=== PATIENT | female | born 1965 | race African-American/Black ===

== ENCOUNTER 2025-01-17 09:34 | Outpatient (AMB) | payer OTHER, SELFPAY ==
--- OUTSIDE RECORDS SUMMARY | 2024-03-07 07:30 | XMS_ITS | Continuity of Care Document ---
Author Organization [facility] Address [address] [place] [address] Dr [address] [place] [phone] Phone Care Team Providers Care Performing Arts Road Manager Name Role Phone Mauricio CHRISTIANSON, JUSTEN, Joshua FIERRO Unavailable U navailable Procedures Procedure Date PT Did Not Receive Services PT Did Not Receive Services Advance Directives Directive Yes / No Effective Date File Name No Information Encounters Encounter Description Practice Location Reason(s) For Visit Diagnoses Date Provider Providers Copied on Encounter [facility], [address] [place] [address] Dr Lennon [address] Khanh Nguyễn MD, [id number], tel:[phone] [facility] No Information 4 Mauricio CHRISTIANSON RVT, RPVI Robert. [address] [place] [address], [place], [place], [id number] , [place]. tel:[phone] [place] [facility], [address] [place] [address] Dr Lennon [address]Khanh MD, [id number], tel:[phone] [facility] No Information 4 Mauricio CHRISTIANSON RVT, RPVI Robert. [address] [place] [address], [id number] , [place]. tel:[phone] Family History Family Member Type Diagnosis Age At Onset No Information Payers Payer name Insurance type Covered alliance party ID Authornikunja tidanae(s) [facility] [id number] 0 Social History Type Description Quantity Date [...]
--- NOTE | 2025-01-17 09:37 | A.OFFVIS_ITS ---
Intake Visit Reasons: CTS MCI NEUROPATHY Allergies No Known Allergies Allergy (Unverified 03/28/20 18:31) HPI Comments Details: This is a 59 yrs old woman with memory issues and some word finding difficulties starting early 2024. She gets? a lot of anxiety. She also has numbness and tingling in hands. She initially had these 4 years ago and was found to have CTS which got better with wrist splints. The Sx have now come back. She stopped working as a [employer] 1 year ago. Stays home and does not go out. Has no social life . Has a few friends that she sees occasionally.? Her neice lives with her? and has a dog. Graduated from a technical HS in [place] in 1981. Occasionally both feet also go numb and has paresthesia of the right pereira and leg area. 12/27/24 MRI brain : Tiny white matter hyperintensities, age-related cerebral volume loss. 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 Normal motor and sensory nerve conduction velocities in the lower extremities. Normal EMG in the right C5-T1, and right L4-S1 innervated muscles EEG rescheduled. Hands continue to tingle, R>L. Will start using wrist splints at night. [facility] Medical History (Updated 01/17/25 @ 09:53 by Donaldo Kapadia MD) MCI (mild cognitive impairment) Hypertension Neuropathy Carpal tunnel syndrome Social History (Updated 01/16/25 @ 18:45 by Ira Webber MA) Alcohol intake: never Patient Tobacco Use Status: Never used Tobacco Review of Systems Const Details: Sleep:? Difficulty getting to sleepdenies.? Difficulty maintaining sleepdenies?.? Urge to move legsdenies.? Teeth grindingdenies.? Shouting or Kicking during sleep denies.? Abnormal behavior during sleepdenies.? Excessive sleepdenies.? Snoring denies.? Daytime sleepinessdenies. ???General/Constitutional:? Change in appetitedenies.? Chillsdenies.? Fatiguedenies.? Feverdenies.? Weight gaindenies.? Weight lossdenies. ???Ophthalmologic:? Blurred visiontemporary.? Diminished visual acuitydenies. ???ENT:? Stuffinessdenies.? Decreased hearingdenies.? Dry mouthdenies.? Ear paindenies.? Nosebleeddenies.? Ringing in the earsdenies.? Sinus paindenies.? Sore throat denies.? Swollen glandsdenies. ???Endocrine:? Cold intolerancedenies.? Excessive thirstdenies.? Frequent urinationdenies.? Heat intolerancedenies. ???Respiratory:? Shortness of breathdenies.? Chest paindenies.? Coughdenies. ???Breast:? Breast lumpdenies.? Nipple dischargedenies. ???Cardiovascular:? Chest pain at restdenies.? Chest pain with exertiondenies.? Claudicationdenies .? Dizzinessdenies.? Fluid accumulation in the legsdenies.? Irregular heartbeat denies.? Palpitationsdenies. ???Gastrointestinal:? Abdominal paindenies.? Constipationadmits.? Diarrheaadmits.? Difficulty swallowingdenies.? Heartburndenies.? Nauseadenies.? Rectal bleedingdenies. ???Hematology:? Easy bruisingdenies.? Prolonged bleedingdenies. ???Genitourinary:? Frequent urinationadmits.? Urgencydenies.? Incontinencedenies.? Erectile Dysfunctiondenies. ???Musculoskeletal:? Neck paindenies.? Back painadmits.? Muscle achesdenies.? Painful jointsdenies.? Sciaticadenies.? Weaknessdenies. ???Podiatric:? Difficulty walkingdenies.? Foot numbnessdenies. ???Neurologic:? Difficulty swallowingdenies.? Balance difficultydenies.? Coordinationnormal.? Difficulty speakingadmits.? Dizzinessadmits.? Faintingdenies.? Gait abnormality denies.? Headachedenies.? Loss of strengthdenies.? Loss of use of extremity denies.? Low back paindenies.? Memory lossadmits.? Seizuresdenies.? Ticsdenies.? Tingling/Numbnesshands and feet.? Transient loss of visiondenies.? Tremordenies. ???Psychiatric:? Anxietyadmits.? Auditory/visual hallucinationsdenies.? Delusionsdenies.? Depressed moodadmits.? Stressorsadmits.? Substance abusedenies.? Suicidal thoughtsdenies. Physical Exam Neuro Other: Neurological: Abnormal neurological findings:??MMS 28/30.?Mental Status:??alert and oriented X 3,?Normal attention, orientation, memory and affect.?Cranial Nerves:??Pupils are equal, round and reactive to light. Fundoscopy shows normal disc bilaterally. External occular muscles are intact. Visual gilman are full, no ptosis. Face is symmetrical, no facial weakness or droop. Facial sensations are normal. Tongue protrudes in midline. Palate elevates symmetrically. Shoulder shrugging is normal..?Motor Examination:??Normal muscle tone, bulk and strength,?No atrophy or fasciculations,?No drift of the extended upper extremities,?Deep tendon reflexes are 2+?,?Plantars are flexor?.?Straight Leg Raising:??90 degrees.?Sensory Exam:??Normal light touch, temperature, pinprick, vibration and joint-position sensations?,?Rhomberg sign is absent.?Coordination:??no ataxia,?no titubation,?bvdcun-jr-mull, pdlt-kvkz-oanz test and rapid alternating movements were normal.?Gait Exam:??Within normal limits.?Cerebellar Signs:??Ogqorl-op-zukq and nqgk-jg-imlu is normal,?no dysdi adochokinesia?.?Extrapyramidal System:??No tremor, rigidity with normal facial expressions,?No bradykinesia, no bradyphrenia. Normal arm swing and posture. No propulsion or retropulsion.?Speech:??Normal,?no dysphasia or dysarthria..? General Examination: GENERAL APPEARANCE:??normal,?in no acute distress.?HEAD:??normocephalic,?atraumatic.?EYES:??sclera non-icteric,? conjunctiva clear.?EARS:??auditory canal clear,?tympanic membrane intact, clear.?NOSE:??no lesions.?ORAL CAVITY:??gums normal,?mucosa moist,?no lesions.?THROAT:??clear.?NECK/THYROID:??no cervical lymphadenopathy,?thyroid normal,?neck supple, full range of motion,?no carotid bruit.?SKIN:??no rashes,?no significant birthmarks.?HEART:??S1, S2 normal,?no murmurs.?LUNGS:??clear anteriorly and posteriorly.?CHEST:??no gross rib deformity,?clear to auscultation.?BACK:??normal exam of spine.?EXTREMITIES:??no edema.?PERIPHERAL PULSES:??normal.?PSYCH:??alert, oriented,?cognitive function intact,?cooperative with exam.? Mini Mental Status Exam: Level of Consciousness:??Alert.?Orientation:??Knows correct year, not month, date, day and season,?Knows correct city, county and state. Knows correct location and floor.?Registration:??Able to register 3 objects.?Attention:??Serial 7's to 93.?Recall:??Able to recall 3 out of 3 objects.?Language:??Normal spontaneous speech, fluency, repetition,naming, comprehension, reading and writing.?Total Score:??28/30.? Assessment & Plan Assessment & Plan (1) Carpal tunnel syndrome: Code(s): G56.00 - Carpal tunnel syndrome, unspecified upper limb Category: Medical (2) MCI (mild cognitive impairment): Code(s): G31.84 - Mild cognitive impairment of uncertain or unknown etiology Category: Medical Plan Reschedule EEG, MRA brain to r/o aneurysm suspected on MRI. Wear wrist splints at night for mild CTS Orders: Orders EEG electroencephalogram Today G31.84 - Mild cognitive impairment of uncertain or unknown etiology MR angio head wo con Today I67.1 - Cerebral aneurysm, nonruptured Coding Level of Care Code Est Pt Level 3 (91028) Diagnoses Carpal tunnel syndrome G56.00 MCI (mild cognitive impairment) G31.84
--- OUTSIDE RECORDS SUMMARY | 2025-01-17 10:04 | XMS_ITS | Clinical Summary ---
Author Organization [facility] Address [address] [place] [address] Phone Care Team Providers Care Veneer Sample Maker Name Role Phone Aquilino Del Rio MD Primary Care Provider Allergies No known active allergies Medications hydroCHLOROthia zide (MICROZIDE) 12.5 mg capsule TAKE 1 CAPSULE BY MOUTH EVERY DAY IN THE MORNING 90 capsule 1 08/28/2024 Active lisinopriL (PRINIVIL,ZESTR IL) 10 mg tablet TAKE 1 TABLET BY MOUTH EVERY DAY 90 tablet 1 08/28/2024 Active naproxen (NAPROSYN) 500 mg tablet TAKE 1 TABLET BY MOUTH TWICE A DAY WITH MEALS 60 tablet 2 11/22/2024 Active labetaloL (NORMODYNE) 300 mg tablet TAKE 1 TABLET BY MOUTH TWICE A DAY 180 tablet 3 12/19/2024 Active Active Problems Problem Noted Date Diagnosed Date Ganglion of right wrist 05/29/2024 ASCUS with positive high risk HPV cervical 01/26 Overview (06/15/2024): Pap 01/2024 - ASCUS, HPV positive, 16/18/45 neg Colpo negative Repeat pap 2024 Lymphadenopathy 05/08/2021 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 9) with comorbidity (CMS/HCC V24, CMS/HCC V28) 04/28/2019 Bilateral carpal tunnel syndrome 12/23/2017 Depression 01/21/2017 Solitary thyroid nodule 01/21/2017 Left ventricular hypertrophy 09/04/2015 Internal hemorrhoids 05/01/2014 Hyperlipidemia 10/17/2013 Left atrial enlargement 09/30/2013 Positive reaction to tuberculin skin test 2011 Hypertension 08/28/2008 Encounters Date Type Department Care Team Description 11/02/2024 Telephone Internal Medicine - [address] [place] [address] Aquilino Del Rio MD from Last 3 Months Immunizations Name Administration Dates Next Due Influenza Quadravalent, MDCK , 0.5ml, with preservative (Flucelvax) 6mo and older 05/12/2018 Influenza, Unspecified 03/08/2024,04/04/2023, Moderna SARS-CoV-2 COVID-19, mRNA, LNP-S, preservative free 04/18/2023 Pneumococcal conjugate 13 va lent (Prevnar 13, PCV13) 2mo and older 06/24/2017 Pneumococcal polysaccharide 23 valent (Pneumovax 23) 2yo and older 05/29/2019 Tdap Tetanus diptheria acell ular pertussis (Boostrix; Adacel) 7yo and older 01/21/2017 Medical History Medical History Date Comments CTS (carpal tunnel syndrome) 12/23/2017 DX: CTS (carpal tunnel syndrome) Depression 01/21/2017 DX:Depression Hyperlipidemia 10/17/2013 DX:Hyperlipidemi a Hypertension 08/28/2008 DX:Hypertension Internal hemorrhoids 05/01/2014 DX:Internal hemorrhoids Left atrial enlargement 09/30/2013 DX:Left atrial enlargement Left ventricular hypertrophy 09/04/2015 DX: Left ventricular hypertrophy Positive reaction to tubercu silvia skin test 03/30/2012 DX:Positive reaction to tube rculin skin test Solitary thyroid nodule 01/21/2017 DX:Solit lewis thyroid nodule Family History Medical History Relation Name Comments Lung cancer Father 57 sei zures epilepsy Dementia Mother Hypertension Mother living Other: sebastián cerda Sister 1 d 2009 Lung cancer Sister 2 ? stroke Breast cancer Neg Hx Relation Name Status Comments Father Mother Sister 1 Sister 2 Social History Tobacco Use Types Packs/Day Years Used Date Smoking Tobacco: Some Days Smokeless Tobacco: Never Alcohol Use Standard Drinks/Week Comments Yes 0 (1 standard drink = 0.6 oz pur e alcohol) Comments Unknown Sex and Gender Information Value Date Recorded Sex Assigned at Not on file Legal Sex Female 8:48 AM EST Gender Identity Not on file Sexual Orientation Not on file Obstetrics History Last Filed Vital Signs Vital Sign Reading Time Taken Comments Blood Pressure 118/60 09/18/2024 3:26 PM EDT Pulse 72 09/18/2024 3:26 PM EDT Temperature 36 C (96.8 F) 09/18/2024 3:26 PM EDT Respiratory Rate - - Oxygen Saturation 98% 09/18/2024 3:26 PM EDT Inhaled Oxygen Concentration - - Weight 71.1 kg (156 lb 12.8 oz) 09/18/2024 3:26 PM EDT Height 157.5 cm (5' 2 ) 03/22/2024 2:11 PM EDT Body Mass Index 28.68 03/22/2024 2:11 PM EDT Plan of Treatment Upcoming Encounters Date Type Department Care Team ([facility] st Contact Info) Description 03/07/2025 4:00 PM EDT Appointment Radiology Department [address] [phone] 03/22/2025 9:30 AM EDT Office Visit Internal Medicine - [place] [address] [address] Aquilino Del Rio MD 175 [facility] [address] [place] [address] Health Maintenance Due Date Last Done Comments Zoster Vaccines (1 of 2) 2013 Colorectal Cancer Screening: Stool Based Tests (FOBT/FIT) 06/20/2022 Depression Screening 06/20/2022 HIV Screening 06/20/2022 Social Influencers of Health Screening 06/20/2022 COVID-19 Vaccine ( season) 2024 04/18/2023, 10/28/2021 Hypertension/CHF/CAD Annual BMP Blood Test 03/07/2025 03/07/2024, 03/07/2024 Influenza Vaccine (#1) 2025 , 04/04/2023, 07/10/2022, Additional history exists Breast Cancer Screening 09/08/2025 09/08/19 24, 10/07/2022, 03/31/2022, Additional history exists Cervical Cancer Screening: HPV 01/16/2029 01/17/2024 Cholesterol Screening (Lipid Panel) 03/07/2029 03/07/2024, 03/07/2024 DTaP,Tdap,and Td Vaccines (3 - Td or Tdap) 01/07/2035 01/07/2025, 01/21/2017 Hepatitis C Screening Completed 05/01/2019 Colorectal Cancer Screening: Colonoscopy Discontinued 08/12/2022 Pneumococcal Vaccine: 50+ Years Completed 09/26/2024, 05/29/2019, 06/24/2017 Pneumococcal Vaccine: Pediatrics (0 to 5 Years) and At-Risk Patients (6 to 49 Years) Completed 09/26/2024, 05/29/2019, 06/24/2017 RSV Immunization Adult Patients Completed 09/26/2024 HIB Vaccines Aged Out No longer eligi ble based on patient's age to complete this topic HPV Vaccines Aged Out No longer eligi ble based on patient's age to complete this topic Hepatitis A Vaccines Aged Out No long er eligible based on patient's age to complete this topic Hepatitis B Vaccines Aged Out No long er eligible based on patient's age to complete this topic IPV Vaccines Aged Out No longer eligi ble based on patient's age to complete this topic MMR Vaccines Aged Out No longer eligi ble based on patient's age to complete this topic Meningococcal ACWY Vaccine Aged Out N o longer eligible based on patient's age to complete this topic Meningococcal B Vaccine Aged Out No l onger eligible based on patient's age to complete this topic RSV Immunization Patients Under 20 months Aged Out No longer eligible based on patient's age to complete this topic Varicella Vaccines Aged Out No longer eligible based on patient's age to complete this topic Procedures Procedure Name Priority Date/Time Associated Diagnosis Comments ANNUAL BMP BLOOD TEST Routine 03/07/2024 LIPID PANEL Routine 03/07/2024 HPV Routine 01/17/2024 DX MAMMO INCL CAD UNI Routine 09/08/2023 3:48 PM EST Encounter for screening mammogram for malignant neoplasm of breast COLONOSCOPY Routine 08/12/2022 HEPATITIS C SCREENING Routine 05/01/2019 from Last 3 Months or Most Recently Relevant to Health Maintenance Results * Annual BMP Blood Test (03/07/2024) Pathologist [facility] Annual BMP Blood Test abstracted [facility] Provider [facility] Final Result * (ABNORMAL) Lipid panel (03/07/2024) [facility] LDL/HDL Ratio 3 0 - 4 Triglycerides 94 0 - 150 mg/dL Cholesterol 190 0 - 200 mg/dL HDL 60 >=40 mg/dL LDL Cholesterol 112(A) 0 - 100 mg/dL Blood Venous blood specimen / Unknown [facility] Provider LAB BLOOD ORDERABLES Karli l Result * Cervical Cancer Screening: HPV (01/17/2024) [facility] Cervical Cancer Screening: HPV positive, abstracted Comment:HIGH RISK HPV: POSIT SUHAIL , HPV 16: NEGATIVE HPV 18/45: NEGATIVE [facility] Provider [facility] Final Result * DX MAMMO INCL CAD UNI (09/08/2023 3:48 PM EST) Anatomical Region Laterality Modality Mammography 10/07/2022 9:30 AM EDT Narrative 09/08/2023 4:19 PM EST This is a summary report. The complete report is available in the patient's medical record. If you cannot access the medical record, please contact the sending organization for a detailed fax or copy. Right breast mammogram. History follow-up on microcalcifications in the inner inferior right breast. Magnification views of the right breast were obtained. Compared with priors, the earliest magnification views from 09/25/2021. Microcalcifications of concern in the right in the inferior breast are very subtle and barely visible on today's examination. Considering stability for almost 2 years they are considered to be benign. No new suspicious abnormalities identified. Conclusions: Stable for almost 2 years microcalcifications in the right breast. Follow-up mammogram at the time of your next annual screening. BI-RADS 2, benign findings. Procedure Note Kellen Sweeney MD - 02/28/2024 This is a summary report. The complete report is available in thepatient's medical record. If you cannot access the medical record, pleasecontact the sending organization for a detailed fax or copy. Right breast mammogram. History follow-up on microcalcifications in the inner inferior rightbreast. Magnification views of the right breast were obtained. Compared withpriors, the earliest magnification views from 09/25/2021. Microcalcifications of concern in the right in the inferior breast arevery subtle and barely visible on today's examination. Consideringstability for almost 2 years they are considered to be benign. No newsuspicious abnormalities identified. Conclusions: Stable for almost 2 years microcalcifications in the rightbreast. Follow-up mammogram at the time of your next annual screening. BI-RADS 2, benign findings. Maria Alejandra Renteria DO IMG BI PROCEDURES Final Result * Colonoscopy (08/12/2022) Colonoscopy no interpretation , abstracted Anatomical Region Laterality Modality Other Historical Provider HEALTH MAINTENANCE Final Result * Hepatitis C Screening (05/01/2019) Hepatitis C Screening abstracted Historical Provider HEALTH MAINTENANCE Final Result from Last 3 Months or Most Recently Relevant to Health Maintenance Insurance [facility] [facility] Care Teams Veneer Sample Maker Relationship Specialty Start Date End Date Aquilino Del Rio MD [address] [id number] PCP - General Internal Medicine 04/28/19
== END 2025-01-17 09:57 | disposition home or self-care (01) ==
LOC: HO.HSM 09:35
PROVIDERS: PCP Internal Medicine; Referring Provider Internal Medicine; Visit Provider Psychiatry & Neurology Neurology
DX: G56.00 Carpal tunnel syndrome, unspecified upper limb (principal); G31.84 Mild cognitive impairment of uncertain or unknown etiology
CPT/HCPCS: 99213

== ENCOUNTER → 2025-01-17 09:34 | Outpatient (BNVA) | payer OTHER, SELFPAY | PROVIDERS: PCP Internal Medicine; Referring Provider Internal Medicine; Visit Provider Psychiatry & Neurology Neurology | DX: I67.1 Cerebral aneurysm, nonruptured (principal); G56.00 Carpal tunnel syndrome, unspecified upper limb | CPT/HCPCS: 99212 ==

== ENCOUNTER → 2025-01-25 09:24 | Outpatient (BNV) | payer OTHER, SELFPAY | PROVIDERS: PCP Internal Medicine; Visit Provider Psychiatry & Neurology Neurology | DX: G31.84 Mild cognitive impairment of uncertain or unknown etiology (principal) | CPT/HCPCS: 95816 ==

== ENCOUNTER 2025-01-25 10:01 | Outpatient (REF) | payer OTHER, SELFPAY ==
--- OUTSIDE RECORDS SUMMARY | 2024-03-07 07:30 | XMS_ITS | Continuity of Care Document ---
Author Organization [facility] Address [address] [place] [address] Dr [address] [place] [phone] Phone Care Team Providers Care Criminal Justice Professor Name Role Phone Mauricio CHRISTIANSON, JUSTEN, Joshua FIERRO Unavailable U navailable Procedures Procedure Date PT Did Not Receive Services PT Did Not Receive Services Advance Directives Directive Yes / No Effective Date File Name No Information Encounters Encounter Description Practice Location Reason(s) For Visit Diagnoses Date Provider Providers Copied on Encounter [facility], [address] [place] [address] Dr Lennon [address] Khanh Nguyễn MD, [id number], tel:[phone] [facility] No Information 4 Mauricio CHRISTIANSON RVT, RPVI Robert. [address] [place] [address], [place], [place], [id number] , [place]. tel:[phone] [place] [facility], [address] [place] [address] Dr Lennon [address]Khanh [place], [id number], tel:[phone] [facility] No Information 4 Mauricio CHRISTIANSON RVT, RPVI Robert. [address] [place] [address], [id number] , [place]. tel:[phone] Family History Family Member Type Diagnosis Age At Onset No Information Payers Payer name Insurance type Covered alliance party ID Authornikunja tidanae(s) [facility] [id number] Social History Type Description Quantity Date [...]
--- NOTE | 2025-01-25 09:24 | EEG_ITS ---
Description: This is a routine waking EEG using the 10-20 electrode placement system. The waking background activity consists of low-voltage fast frequency seen diffusely intermixed with low-voltage posterior 10 hertz alpha frequency.? Photic stimulation is without activation.? Hyperventilation produces no change in the background activity. No focal, lateralizing or paroxysmal discharges are seen. Impression: This waking EEG is within normal limits MTDD
--- OUTSIDE RECORDS SUMMARY | 2025-01-25 10:28 | XMS_ITS | Clinical Summary ---
Author Organization 175 [facility] Address 175 [place] [address] Phone Care Team Providers Care Route Sales Driver Name Role Phone Aquilino Del Rio MD Primary Care Provider [phone] Allergies No known active allergies Medications hydroCHLOROthia [...] Team Description 11/02/2024 Telephone Internal Medicine - [address] [place] [address] Aquilino Del Rio MD from [...] Upcoming Encounters Date Type Department Care Team ([facility] st Contact Info) Description 03/07/2025 4:00 PM EDT Appointment Radiology Department [address] [phone] 03/22/2025 9:30 AM EDT Office Visit Internal Medicine - [place] [address] [phone] Aquilino Del Rio MD 175 [facility] [address] [place] [address] Health Maintenance Due Date Last Done Comments [...] Vaccine: 50+ Years Completed 09/26/2024, 05/29/2019, 06/24/2017 RSV Immunization Adult [...] Results * Annual BMP Blood Test (03/07/2024) HM Annual BMP Blood Test abstracted [facility] Provider [facility] Final Result * (ABNORMAL) Lipid panel (03/07/2024) [facility] LDL/HDL Ratio 3 0 - 4 Triglycerides 94 0 - 150 mg/dL Cholesterol 190 0 - 200 mg/dL HDL 60 >=40 mg/dL LDL Cholesterol 112(A) 0 - 100 mg/dL Blood Venous blood specimen / Unknown Result [facility] Provider LAB BLOOD ORDERABLES Karli l Result * Cervical Cancer Screening: HPV (01/17/2024) [facility] Cervical Cancer Screening: HPV positive, abstracted Comment:HIGH RISK HPV: POSIT SUHAIL , HPV 16: NEGATIVE HPV 18/45: NEGATIVE [facility] Provider [facility] Final Result * DX MAMMO INCL CAD [...] BI PROCEDURES Final Result * Colonoscopy (08/12/2022) Pathologist [facility] Colonoscopy no interpretation , abstracted Anatomical Region Laterality Modality Other Historical Provider HEALTH MAINTENANCE Final Result * Hepatitis C Screening (05/01/2019) Pathologist [facility] Hepatitis C Screening abstracted Historical Provider HEALTH MAINTENANCE Final Result from Last 3 Months or Most Recently Relevant to Health Maintenance Insurance [facility] PL[facility] Care Teams Route Sales Driver Relationship Specialty Start Date End Date Aquilino Del Rio MD [address] [address] PCP - General Internal Medicine 04/28/19
== END 2025-01-25 10:02 | disposition home or self-care (01) ==
LOC: HO.NEURO 10:01
PROVIDERS: PCP Internal Medicine; Visit Provider Psychiatry & Neurology Neurology
DX: G31.84 Mild cognitive impairment of uncertain or unknown etiology (principal)
CPT/HCPCS: 95816

== ENCOUNTER 2025-04-03 11:10 | Outpatient (AMB) | payer OTHER, SELFPAY ==
--- NOTE | 2025-04-03 11:17 | A.OFFVIS_ITS ---
Intake Visit Reasons: 2M MCI Allergies No Known Allergies Allergy (Unverified 03/28/20 18:31) HPI Comments Details: This is a 59 yrs old woman with memory issues and some word finding difficulties starting early 2024. She gets? a lot of anxiety. She also has numbness and tingling in hands. She initially had these 4 years ago and was found to have CTS which got better with wrist splints. The Sx have now come back. 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 Stays home and does not go out. Has no social life . Has a few friends that she sees occasionally.? Her neice lives with her? and has a dog. Graduated from a technical HS in [place] in 1981. Occasionally both feet also go numb and has paresthesia of the right pereira and leg area. Her mother had dementia either in her 60s or 70s and several of her maternal uncles also had dementia 12/27/24 MRI brain : Tiny white matter hyperintensities, age-related cerebral volume loss. 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 Normal motor and sensory nerve conduction velocities in the lower extremities. Normal EMG in the right C5-T1, and right L4-S1 innervated muscles EEG is within normal limits. Hands continue to tingle, R>L. Will start using wrist splints at night. [facility] Medical History (Updated 04/03/25 @ 11:20 by Donaldo Kapadia MD) MCI (mild cognitive impairment) Hypertension Neuropathy Carpal tunnel syndrome Social History (Updated 01/16/25 @ 18:45 by Ira Webber MA) Alcohol intake: never Patient Tobacco Use Status: Never used Tobacco Review of Systems Const Details: Sleep:? Difficulty getting to sleepdenies.? Difficulty maintaining sleepdenies?.? Urge to move legsdenies.? Teeth grindingdenies.? Shouting or Kicking during sleep denies.? Abnormal behavior during sleepdenies.? Excessive sleepdenies.? Snoring denies.? Daytime sleepinessdenies. ???General/Constitutional:? Change in appetitedenies.? Chillsdenies.? Fatiguedenies.? Feverdenies.? Weight gaindenies.? Weight lossdenies. ???Ophthalmologic:? Blurred visiontemporary.? Diminished visual acuitydenies. ???ENT:? Stuffinessdenies.? Decreased hearingdenies.? Dry mouthdenies.? Ear paindenies.? Nosebleeddenies.? Ringing in the earsdenies.? Sinus paindenies.? Sore throat denies.? Swollen glandsdenies. ???Endocrine:? Cold intolerancedenies.? Excessive thirstdenies.? Frequent urinationdenies.? Heat intolerancedenies. ???Respiratory:? Shortness of breathdenies.? Chest paindenies.? Coughdenies. ???Breast:? Breast lumpdenies.? Nipple dischargedenies. ???Cardiovascular:? Chest pain at restdenies.? Chest pain with exertiondenies.? Claudicationdenies .? Dizzinessdenies.? Fluid accumulation in the legsdenies.? Irregular heartbeat denies.? Palpitationsdenies. ???Gastrointestinal:? Abdominal paindenies.? Constipationadmits.? Diarrheaadmits.? Difficulty swallowingdenies.? Heartburndenies.? Nauseadenies.? Rectal bleedingdenies. ???Hematology:? Easy bruisingdenies.? Prolonged bleedingdenies. ???Genitourinary:? Frequent urinationadmits.? Urgencydenies.? Incontinencedenies.? Erectile Dysfunctiondenies. ???Musculoskeletal:? Neck paindenies.? Back painadmits.? Muscle achesdenies.? Painful jointsdenies.? Sciaticadenies.? Weaknessdenies. ???Podiatric:? Difficulty walkingdenies.? Foot numbnessdenies. ???Neurologic:? Difficulty swallowingdenies.? Balance difficultydenies.? Coordinationnormal.? Difficulty speakingadmits.? Dizzinessadmits.? Faintingdenies.? Gait abnormality denies.? Headachedenies.? Loss of strengthdenies.? Loss of use of extremity denies.? Low back paindenies.? Memory lossadmits.? Seizuresdenies.? Ticsdenies.? Tingling/Numbnesshands and feet.? Transient loss of visiondenies.? Tremordenies. ???Psychiatric:? Anxietyadmits.? Auditory/visual hallucinationsdenies.? Delusionsdenies.? Depressed moodadmits.? Stressorsadmits.? Substance abusedenies.? Suicidal thoughtsdenies. Physical Exam Neuro Other: Neurological: Abnormal neurological findings:??MMS 25/30.?Mental Status:??alert and oriented X 3,?Normal attention, orientation, and affect.?Cranial Nerves:??Pupils are equal, round and reactive to light. Fundoscopy shows normal disc bilaterally. External occular muscles are intact. Visual gilman are full, no ptosis. Face is symmetrical, no facial weakness or droop. Facial sensations are normal. Tongue protrudes in midline. Palate elevates symmetrically. Shoulder shrugging is normal..?Motor Examination:??Normal muscle tone, bulk and strength,?No atrophy or fasciculations,?No drift of the extended upper extremities,?Deep tendon reflexes are 2+?,?Plantars are flexor?.?Straight Leg Raising:??90 degrees.?Sensory Exam:??Normal light touch, temperature, pinprick, vibration and joint-position sensations?,?Rhomberg sign is absent.?Coordination:??no ataxia,?no titubation,?znfcmv-at-vovc, jsiu-untn-qmfb test and rapid alternating movements were normal.?Gait Exam:??Within normal limits.?Cerebellar Signs:??Ybnjxe-ux-hbpb and mbel-fb-yggm is normal,?no dysdiadochokinesia?.?Extrapyramidal System:??No tremor, rigidity with normal facial expressions,?No bradykinesia, no bradyphrenia. Normal arm swing and posture. No propulsion or retropulsion.?Speech:??Normal,?no dysphasia or dysarthria..? General Examination: GENERAL APPEARANCE:??normal,?in no acute distress.?HEAD:??normocephalic,?atraumatic.?EYES:??sclera non- icteric,?conjunctiva clear.?EARS:??auditory canal clear,?tympanic membrane intact, clear.?NOSE:??no lesions.?ORAL CAVITY:??gums normal,?mucosa moist,?no lesions.?THROAT:??clear.?NECK/THYROID:??no cervical lymphadenopathy,?thyroid normal,?neck supple, full range of motion,?no carotid bruit.?SKIN:??no rashes,?no significant birthmarks.?HEART:??S1, S2 normal,?no murmurs.?LUNGS:??clear anteriorly and posteriorly.?CHEST:??no gross rib deformity,?clear to auscultation.?BACK:??normal exam of spine.?EXTREMITIES:??no edema.?PERIPHERAL PULSES:??normal.?PSYCH:??alert, oriented,?cognitive function intact,?cooperative with exam.? Mini Mental Status Exam: Level of Consciousness:??Alert.?Orientation:??Knows correct year, month, date, day and season,?Knows correct city, county and state. Knows correct location and floor.?Registration:??Able to register 3 objects.?Attention:??Serial 7's to 93.?Recall:??Able to recall 0 out of 3 objects.?Language:??Normal spontaneous speech, fluency, repetition,naming, comprehension, reading and writing.?Total Score:??25/30.? Assessment & Plan Assessment & Plan (1) MCI (mild cognitive impairment): Comment: January 2025 EEG: This waking EEG is within normal limits Code(s): G31.84 - Mild cognitive impairment of uncertain or unknown etiology Category: Medical Plan: With a family history of dementia, we will proceed with spinal fluid analysis to see if this could be early Alzheimer's disease. (2) Carpal tunnel syndrome: Code(s): G56.00 - Carpal tunnel syndrome, unspecified upper limb Category: Medical Plan Reschedule MRA brain to r/o aneurysm suspected on MRI. Wear wrist splints at night for mild CTS Orders: Orders ABeta 42/40 p-tau 217 Eval Today G31.84 - Mild cognitive impairment of uncertain or unknown etiology CSF Cell Count w Diff Today G31.84 - Mild cognitive impairment of uncertain or unknown etiology CSF Glucose Today G31.84 - Mild cognitive impairment of uncertain or unknown etiology CSF Total Protein Today G31.84 - Mild cognitive impairment of uncertain or unknown etiology TSH reflex Free T4 Today G31.84 - Mild cognitive impairment of uncertain or unknown etiology Vitamin B12 and Folate Today G31.84 - Mild cognitive impairment of uncertain or unknown etiology Phospho-Tau Tot-Tau AB42 CSF Today G31.84 - Mild cognitive impairment of uncertain or unknown etiology Coding Level of Care Code Est Pt Level 4 (34175) Diagnoses MCI (mild cognitive impairment) G31.84 Carpal tunnel syndrome G56.00
--- OUTSIDE RECORDS SUMMARY | 2025-04-03 14:02 | XMS_ITS ---
Author Name [facility] Organization Unknown Care Team Organization Name Specialty Phone Email Start Date End Da te [facility] AISHWARYA CRAMER Primary Care 05/19/2022 02/28/20 24
--- OUTSIDE RECORDS SUMMARY | 2025-04-03 14:02 | XMS_ITS | Clinical Summary ---
Author Organization 175 [facility] Address [address] [place] [address] Phone Care Team Providers Care Aging Department Supervisor Name Role Phone Aquilino Del Rio MD Primary Care Provider [phone] Allergies No known active allergies Medications hydroCHLOROthia [...] Encounters Date Type Department Care Team Description 03/07/2025 10:24 AM EDT - 03/07/2025 11:59 PM EDT Hospital Encounter Radiology Department - [address] [phone] Encounter for screening mammogram for breast cancer Discharge Disposition: Home or Self Care 01/26/2025 Telephone Internal Medicine - [address] [place] [address] Aquilino Del Rio MD from [...] = 0.6 oz pur e alcohol) Comments No Sex and Gender Information Value Date Recorded Sex Assigned at Not on file Legal Sex Female 8:48 AM EST Gender Identity Not on file Sexual Orientation Not on file Obstetrics History Para Term AB IAB SAB Ectopic Multiple Livin g Live Births 0 0 0 0 Last Filed Vital Signs Vital Sign Reading [...] Upcoming Encounters Date Type Department Care Team (Late st Contact Info) Description 04/26/2025 8:30 AM EDT Appointment Radiology Department [address] [phone] Health Maintenance Due Date Last Done Comments Zoster Vaccines (1 of 2) 2013 Colorectal Cancer Screening: Stool Based Tests (FOBT/FIT) 06/20/2022 HIV Screening 06/20/2022 Social Influencers of Health Screening 06/20/2022 Depression Screening 07/12/2024 Hypertension/CHF/CAD Annual BMP Blood Test 03/07/2025 03/07/2024, 03/07/2024 COVID-19 Vaccine ( season) 2025 04/18/2023, 10/28/2021 Influenza Vaccine (#1) 2025 4, 04/04/2023, 07/10/2022, Additional history exists Breast Cancer Screening 03/07/2027 03/07/20 25, 09/08/2023, 10/07/2022, Additional history exists Cervical Cancer Screening: HPV [...] Procedure Name Priority Date/Time Associated Diagnosis Comments MG MAMMO DIGITAL SCREENING W GALILEO BILAT Routine 03/07/2025 10:44 AM EDT Encounter for screening mammogram for breast cancer ANNUAL BMP BLOOD TEST Routine 03/07/2024 LIPID PANEL Routine 03/07/2024 HPV Routine 01/17/2024 COLONOSCOPY Routine 08/12/2022 HEPATITIS C SCREENING Routine 05/01/2019 from Last 3 Months or Most Recently Relevant to Health Maintenance Results * (ABNORMAL) MG Mammo Digital Screening w Galileo bilat (03/07/2025 10:44 AM EDT) Anatomical Region Laterality Modality Breast Bilateral Mammography 03/08/2025 9:30 AM EDT Impressions 03/08/2025 9:42 AM EDT Calcifications versus artifact in the axillary regions. Repeat examination after careful portion of the axillary region is recommended. If densities persist, magnification views in MLO and straight lateral projection should be obtained. We will contact the patient for the arrangements. BI-RADS CATEGORY: 0 - INCOMPLETE - NEED ADDITIONAL IMAGING EVALUATION RECOMMENDATION: Additional bilateral breast imaging recommended. Mammo Location: [facility], [address] [place] [address], [id number], . -------- FINAL REPORT -------- Dictated By: Kellen Sweeney Dictated Date: 03/08/2025 09:30 ET Assigned Physician: Kellen Sweeney Reviewed and Electronically Signed By: Kellen Sweeney Signed Date: 03/08/2025 09:42 ET Workstation ID: [id number] Transcribed By: Self Edit Transcribed Date: 03/08/2025 09:30 ET Narrative 03/08/2025 9:42 AM EDT Bilateral screening mammogram. CLINICAL: 60 years old, Female, routine annual exam. COMPARISON: Prior mammograms, latest from 10/07/2022. TECHNIQUE: Bilateral MLO and CC views were obtained digitally with 2-D C views and 3-D mammogram (digital breast tomosynthesis). Computer-aided detection was utilized in evaluation of this exam (CAD). FINDINGS: There are numerous calcifications versus artifact from the deodorant or lotion in the axillary regions bilaterally. There were present previously however appear to be more prominent. There is no evidence of suspicious mass or architectural distortion. No other worrisome calcifications are evident. BREAST DENSITY: B - There are scattered areas of fibroglandular density. Procedure Note Kellen Sweeney MD - 03/08/2025 Bilateral screening mammogram. CLINICAL: 60 years old, Female, routine annual exam. COMPARISON: Prior mammograms, latest from 10/07/2022. TECHNIQUE: Bilateral MLO and CC views were obtained digitally with 2-D Cviews and 3-D mammogram (digital breast tomosynthesis). Computer-aideddetection was utilized in evaluation of this exam (CAD). FINDINGS: There are numerous calcifications versus artifact from the deodorant orlotion in the axillary regions bilaterally. There were present previouslyhowever appear to be more prominent. There is no evidence of suspicious mass or architectural distortion. Noother worrisome calcifications are evident. BREAST DENSITY: B - There are scattered areas of fibroglandular density. IMPRESSION: Calcifications versus artifact in the axillary regions. Repeatexamination after careful portion of the axillary region is recommended.If densities persist, magnification views in MLO and straight lateralprojection should be obtained. We will contact the patient for thearrangements. BI-RADS CATEGORY: 0 - INCOMPLETE - NEED ADDITIONAL IMAGING EVALUATION RECOMMENDATION: Additional bilateral breast imaging recommended. Mammo Location: [facility], [address] [place] [address], [id number], . -------- FINAL REPORT -------- Dictated By: Kellen Sweeney Dictated Date: 03/08/2025 09:30 ET Assigned Physician: Kellen Sweeney Reviewed and Electronically Signed By: Kellen Sweeney Signed Date: 03/08/2025 09:42 ET Workstation ID: [id number] Transcribed By: Self Edit Transcribed Date: 03/08/2025 09:30 ET Aquilino Del Rio MD IM BI PROCEDURES Final Result * Annual BMP Blood Test (03/07/2024) Pathologist [facility] Annual BMP Blood Test abstracted Historical Provider HEALTH MAINTENANCE Final Result * (ABNORMAL) Lipid panel (03/07/2024) Pathologist [facility] LDL/HDL Ratio 3 0 - 4 Triglycerides 94 0 - 150 mg/dL Cholesterol 190 0 - 200 mg/dL HDL 60 >=40 mg/dL LDL Cholesterol 112(A) 0 - 100 mg/dL Blood Venous blood specimen / Unknown Historical Provider LAB BLOOD ORDERABLES Karli l Result * Cervical Cancer Screening: HPV (01/17/2024) [facility] Cervical Cancer Screening: HPV positive, abstracted Comment:HIGH RISK HPV: POSIT SUHAIL , HPV 16: NEGATIVE HPV 18/45: NEGATIVE Result [facility] Provider HEALTH MAINTENANCE Final Result * Colonoscopy (08/12/2022) [facility] Colonoscopy no interpretation , abstracted Anatomical Region Laterality Modality Other [facility] Provider HEALTH MAINTENANCE Final Result * Hepatitis C Screening (05/01/2019) [facility] Hepatitis C Screening abstracted Result [facility] Provider HEALTH MAINTENANCE Final Result from Last 3 Months or Most Recently Relevant to Health Maintenance Insurance [facility] [employer] Care Teams Aging Department Supervisor Relationship Specialty Start Date End Date Aquilino Del Rio MD [address] [address] PCP - General Internal Medicine 04/28/19
== END 2025-04-03 11:47 | disposition home or self-care (01) ==
LOC: HO.HSM 11:11
PROVIDERS: PCP Internal Medicine; Visit Provider Psychiatry & Neurology Neurology
DX: G31.84 Mild cognitive impairment of uncertain or unknown etiology (principal); G56.00 Carpal tunnel syndrome, unspecified upper limb
CPT/HCPCS: 99214

== ENCOUNTER → 2025-04-03 11:10 | Outpatient (BNVA) | payer OTHER, SELFPAY | PROVIDERS: PCP Internal Medicine; Visit Provider Psychiatry & Neurology Neurology | DX: G31.84 Mild cognitive impairment of uncertain or unknown etiology (principal); G56.00 Carpal tunnel syndrome, unspecified upper limb | CPT/HCPCS: 99212 ==

== ENCOUNTER 2025-05-23 10:48 | Outpatient (AMB) | payer OTHER, SELFPAY ==
--- OUTSIDE RECORDS SUMMARY | 2024-03-07 06:30 | XMS_ITS | Continuity of Care Document ---
Author Organization [facility] Address [address] [place] [address] Dr [address] [place] [address] Phone Care Team Providers Care Inpatient Care Manager Rn Name Role Phone Mauricio CHRISTIANSON, JUSTEN, Joshua FIERRO Unavailable U navailable Procedures Procedure Date PT Did Not Receive Services PT Did Not Receive Services Advance Directives Directive Yes / No Effective Date File Name No Information Encounters Encounter Description Practice Location Reason(s) For Visit Diagnoses Date Provider Providers Copied on Encounter [facility], [address] [place] [address] Dr Lennon [address]Suite Khanh Nguyễn MD, [id number], tel:[phone] [facility] No Information 4 Mauricio CHRISTIANSON RVT, RPVI Robert. [address] [place] [address], [place], [place], [id number] , [place]. tel:[phone] [place] [facility], [address] [place] [address] Dr Lennon [address]Khanh [place], [id number], tel:[phone] [facility] No Information 4 Mauricio CHRISTIANSON RVT, RPVI Robert. [address] [place] [address], [id number] , [place]. tel:[phone] Family History Family Member Type Diagnosis Age At Onset No Information Payers Payer name Insurance type Covered democrat ID Authornikunja tidanae(s) [facility] [id number] Social History Type Description Quantity Date Captured Comments Sex Female Smoking Status No Information Chief Complaint And Reason For Visit No Information Reason For Referral Reason For Referral No Information History Of Present Illness Encounter Date Complaint History Of Prese nt Illness No Information Functional Status Date Functional Assessmen t No Information Instructions Date Instruction Additional Infor mation No Information Assessments Type Assessment Date No Information Patient Care Teams Name Effective Dates (start - stop) Status Members No Information
--- NOTE | 2025-05-23 11:18 | A.OFFVIS_ITS ---
Intake Visit Reasons: 2m Allergies No Known Allergies Allergy (Unverified 03/28/20 18:31) HPI Comments Details: This is a 59 yrs old woman with memory issues and some word finding difficulties starting early 2024. Her memory may be a bit better. At times says things that are not exactly what she wanted to say. She gets? a lot of anxiety. She also has numbness and tingling in hands. She initially had these 4 years ago and was found to have CTS which got better with wrist splints. The Sx have now come back. 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 Stays home and does not go out. Has no social life . Has a few friends that she sees occasionally.? Her neice lives with her? and has a dog. Graduated from a technical HS in [place] in 1981. Occasionally both feet also go numb and has paresthesia of the right pereira and leg area. Her mother had dementia either in her 60s or 70s and several of her maternal uncles also had dementia 12/27/24 MRI brain : Tiny white matter hyperintensities, age-related cerebral volume loss. 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 Normal motor and sensory nerve conduction velocities in the lower extremities. Normal EMG in the right C5-T1, and right L4-S1 innervated muscles EEG is within normal limits. Hands continue to tingle, R>L. Will start using wrist splints at night. [facility] Medical History (Updated 04/03/25 @ 11:20 by Donaldo Kapadia MD) MCI (mild cognitive impairment) Hypertension Neuropathy Carpal tunnel syndrome Social History (Updated 01/16/25 @ 18:45 by Ira Webber MA) Alcohol intake: never Patient Tobacco Use Status: Never used Tobacco Review of Systems Const Details: Sleep:? Difficulty getting to sleepdenies.? Difficulty maintaining sleepdenies?.? Urge to move legsdenies.? Teeth grindingdenies.? Shouting or Kicking during sleep denies.? Abnormal behavior during sleepdenies.? Excessive sleepdenies.? Snoring denies.? Daytime sleepinessdenies. ???General/Constitutional:? Change in appetitedenies.? Chillsdenies.? Fatiguedenies.? Feverdenies.? Weight gaindenies.? Weight lossdenies. ???Ophthalmologic:? Blurred visiontemporary.? Diminished visual acuitydenies. ???ENT:? Stuffinessdenies.? Decreased hearingdenies.? Dry mouthdenies.? Ear paindenies.? Nosebleeddenies.? Ringing in the earsdenies.? Sinus paindenies.? Sore throat denies.? Swollen glandsdenies. ???Endocrine:? Cold intolerancedenies.? Excessive thirstdenies.? Frequent urinationdenies.? Heat intolerancedenies. ???Respiratory:? Shortness of breathdenies.? Chest paindenies.? Coughdenies. ???Breast:? Breast lumpdenies.? Nipple dischargedenies. ???Cardiovascular:? Chest pain at restdenies.? Chest pain with exertiondenies.? Claudicationdenies .? Dizzinessdenies.? Fluid accumulation in the legsdenies.? Irregular heartbeat denies.? Palpitationsdenies. ???Gastrointestinal:? Abdominal paindenies.? Constipationadmits.? Diarrheaadmits.? Difficulty swallowingdenies.? Heartburndenies.? Nauseadenies.? Rectal bleedingdenies. ???Hematology:? Easy bruisingdenies.? Prolonged bleedingdenies. ???Genitourinary:? Frequent urinationadmits.? Urgencydenies.? Incontinencedenies.? Erectile Dysfunctiondenies. ???Musculoskeletal:? Neck paindenies.? Back painadmits.? Muscle achesdenies.? Painful jointsdenies.? Sciaticadenies.? Weaknessdenies. ???Podiatric:? Difficulty walkingdenies.? Foot numbnessdenies. ???Neurologic:? Difficulty swallowingdenies.? Balance difficultydenies.? Coordinationnormal.? Difficulty speakingadmits.? Dizzinessadmits.? Faintingdenies.? Gait abnormality denies.? Headachedenies.? Loss of strengthdenies.? Loss of use of extremity denies.? Low back paindenies.? Memory lossadmits.? Seizuresdenies.? Ticsdenies.? Tingling/Numbnesshands and feet.? Transient loss of visiondenies.? Tremordenies. ???Psychiatric:? Anxietyadmits.? Auditory/visual hallucinationsdenies.? Delusionsdenies.? Depressed moodadmits.? Stressorsadmits.? Substance abusedenies.? Suicidal thoughtsdenies. Physical Exam Neuro Other: Neurological: Abnormal neurological findings:??MMS 25/30.?Mental Status:??alert and oriented X 3,?Normal attention, orientation, and affect.?Cranial Nerves:??Pupils are equal, round and reactive to light. Fundoscopy shows normal disc bilaterally. External occular muscles are intact. Visual gilman are full, no ptosis. Face is symmetrical, no facial weakness or droop. Facial sensations are normal. Tongue protrudes in midline. Palate elevates symmetrically. Shoulder shrugging is normal..?Motor Examination:??Normal muscle tone, bulk and strength,?No atrophy or fasciculations,?No drift of the extended upper extremities,?Deep tendon reflexes are 2+?,?Plantars are flexor?.?Straight Leg Raising:??90 degrees.?Sensory Exam:??Normal light touch, temperature, pinprick, vibration and joint-position sensations?,?Rhomberg sign is absent.?Coordination:??no ataxia,?no titubation,?leusqk-ds-pfqo, zdou-bawy-vqlt test and rapid alternating movements were normal.?Gait Exam:??Within normal limits.?Cerebellar Signs:??Xjvots-zd-cbyl and blpr-vl-jtmp is normal,?no dysdiadochokin esia?.?Extrapyramidal System:??No tremor, rigidity with normal facial expressions,?No bradykinesia, no bradyphrenia. Normal arm swing and posture. No propulsion or retropulsion.?Speech:??Normal,?no dysphasia or dysarthria..? General Examination: GENERAL APPEARANCE:??normal,?in no acute distress.?HEAD:??normocephalic,?atraumatic.?EYES:??sclera non-icteric,?conjuncti va clear.?EARS:??auditory canal clear,?tympanic membrane intact, clear.?NOSE:??no lesions.?ORAL CAVITY:??gums normal,?mucosa moist,?no lesions.?THROAT:??clear.?NECK/THYROID:??no cervical lymphadenopathy,?thyroid normal,?neck supple, full range of motion,?no carotid bruit.?SKIN:??no rashes,?no significant birthmarks.?HEART:??S1, S2 normal,?no murmurs.?LUNGS:??clear anteriorly and posteriorly.?CHEST:??no gross rib deformity,?clear to auscultation.?BACK:??normal exam of spine.?EXTREMITIES:??no edema.?PERIPHERAL PULSES:??normal.?PSYCH:??alert, oriented,?cognitive function intact,?cooperative with exam.? Mini Mental Status Exam: Level of Consciousness:??Alert.?Orientation:??Knows correct year, month, date, day and season,?Knows correct city, county and state. Knows correct location and floor.?Registration:??Able to register 3 objects.?Attention:??Serial 7's to 93.?Recall:??Able to recall 0 out of 3 objects.?Language:??Normal spontaneous speech, fluency, repetition,naming, comprehension, reading and writing.?Total Score:??25/30.? Assessment & Plan Assessment & Plan (1) MCI (mild cognitive impairment): Comment: January 2025 EEG: This waking EEG is within normal limits Code(s): G31.84 - Mild cognitive impairment of uncertain or unknown etiology Category: Medical Plan: With a family history of dementia, we will proceed with spinal fluid analysis to see if this could be early Alzheimer's disease. (2) Carpal tunnel syndrome: Code(s): G56.00 - Carpal tunnel syndrome, unspecified upper limb Category: Medical Plan Wear wrist splints at night for mild CTS. Spinal fluid analysis to see if this could be early Alzheimer's disease. Orders: Orders CSF Glucose Today G31.84 - Mild cognitive impairment of uncertain or unknown etiology CSF Cell Count w Diff Today G31.84 - Mild cognitive impairment of uncertain or unknown etiology ABeta 42/40 p-tau 217 Eval Today G31.84 - Mild cognitive impairment of uncertain or unknown etiology CSF Total Protein Today G31.84 - Mild cognitive impairment of uncertain or unknown etiology Phospho-Tau Tot-Tau AB42 CSF Today G31.84 - Mild cognitive impairment of uncertain or unknown etiology FL guided lumbar puncture LP Today F02.80 - Dementia in other diseases classified elsewhere, unspecified severity, without behavioral disturbance, psychotic disturbance, mood disturbance, and anxiety, G30.0 - Alzheimer's disease with early onset Coding Level of Care Code Est Pt Level 4 (81566) Diagnoses MCI (mild cognitive impairment) G31.84 Carpal tunnel syndrome G56.00
--- OUTSIDE RECORDS SUMMARY | 2025-05-23 13:05 | XMS_ITS | Clinical Summary ---
Author Organization [address] [facility] Address [address] [place] [address] Phone Care Team Providers Care Impregnator And Drier Helper Name Role Phone Aquilino Del Rio MD Primary Care Provider Allergies No known active allergies Medications amLODIPine (NORVASC) 10 mg tablet Take 1 tablet (10 mg total) by mouth 1 (one) time each day. 90 tablet 3 05/23/20 25 Active hydroCHLOROthi azide (MICROZIDE) 12.5 mg capsule Take 1 capsule (12.5 mg total) by mouth 1 (one) time each day in the morning. 90 capsule 1 05/23/20 25 Active labetaloL (NORMODYNE) 300 mg tablet Take 1 tablet (300 mg total) by mouth 2 (two) times a day. 180 tablet 3 05/23/20 25 Active lisinopriL (PRINIVIL,ZEST RIL) 10 mg tablet Take 1 tablet (10 mg total) by mouth 1 (one) time each day. 90 tablet 1 05/23/20 25 Active naproxen (NAPROSYN) 500 mg tablet Take 1 tablet (500 mg total) by mouth 2 (two) times a day with meals. 60 tablet 2 05/23/20 25 Active hydroCHLOROthi azide (MICROZIDE) 12.5 mg capsule TAKE 1 CAPSULE BY MOUTH EVERY DAY IN THE MORNING 90 capsule 1 08/28/19 25 025 Discontinued lisinopriL (PRINIVIL,ZEST RIL) 10 mg tablet TAKE 1 TABLET BY MOUTH EVERY DAY 90 tablet 1 08/28/19 25 025 Discontinued labetaloL (NORMODYNE) 300 mg tablet TAKE 1 TABLET BY MOUTH TWICE A DAY 180 tablet 3 12/20/19 25 025 Discontinued(Re order) amLODIPine (NORVASC) 10 mg tablet TAKE 1 TABLET BY MOUTH EVERY DAY 90 tablet 3 04/04/20 25 025 Discontinued(Re order) naproxen (NAPROSYN) 500 mg tablet TAKE 1 TABLET BY MOUTH TWICE A DAY WITH MEALS 60 tablet 2 04/04/20 25 025 Discontinued(Re order) hydroCHLOROthi azide (MICROZIDE) 12.5 mg capsule TAKE 1 CAPSULE BY MOUTH EVERY DAY IN THE MORNING 90 capsule 1 05/10/20 25 025 Discontinued(Re order) lisinopriL (PRINIVIL,ZEST RIL) 10 mg tablet TAKE 1 TABLET BY MOUTH EVERY DAY 90 tablet 1 05/10/20 25 025 Discontinued(Re order) Active Problems Problem Noted Date Diagnosed Date [...] Encounters Date Type Department Care Team Description 04/26/2025 7:58 AM EDT - 04/26/2025 11:59 PM EDT Hospital Encounter Radiology Department - [address] [address] Other screening mammogram Discharge Disposition: Home or Self Care 03/07/2025 10:24 AM EDT - 03/07/2025 11:59 PM EDT Hospital Encounter Radiology Department - [address] [address] Encounter for screening mammogram for breast cancer Discharge Disposition: Home or Self Care from Last 3 Months Immunizations Immunization Administration Dates Next Due Influenza Quadravalent, MDCK , 0.5ml, with preservative (Flucelvax) 6mo and older 05/12/2018 Influenza trivalent, recombi nant, 0.5mL, preservative free (Flublok) 9yo and older 04/10/2025 Influenza, Unspecified 03/08/2024,04/04/2023, Moderna SARS-CoV-2 COVID-19, mRNA, LNP-S, preservative free 04/18/2023 Pneumococcal conjugate 13 va lent (Prevnar 13, PCV13) 2mo and older 06/24/2017 Pneumococcal conjugate 20 va lent (Prevnar 20, PCV 20) 2mo and older 09/26/2024 Pneumococcal polysaccharide 23 valent (Pneumovax 23) 2yo and older 05/29/2019 RSV, bivalent, protein subun it RSVpreF, 0.5mL, Preservative Free (ABRYSVO) 50yo and older or 32 through 36 wks of 09/26/2024 Tdap Tetanus diptheria acell ular pertussis (Boostrix; Adacel) 7yo and older 01/07/2025,01/21/2017 Medical History Medical History Date Comments CTS [...] Care Team (Late st Contact Info) Description 05/24/2025 9:30 AM EST Office Visit Internal Medicine - [address] [place] [address] Aquilino Del Rio MD [address] [place] [phone] Health Maintenance Due Date Last Done Comments Zoster Vaccines (1 of 2) 2013 Colorectal Cancer Screening: Stool Based Tests (FOBT/FIT) 06/20/2022 HIV Screening 06/20/2022 Social Influencers of Health Screening 06/20/2022 Depression Screening 07/12/2024 Hypertension/CHF/CAD Annual BMP Blood Test 03/07/2025 03/07/2024, 03/07/2024 Breast Cancer Screening 03/07/2027 03/07/20 25, 09/08/2023, 10/07/2022, Additional history exists Cervical Cancer Screening: HPV 01/16/2029 01/17/2024 Cholesterol Screening (Lipid Panel) 03/07/2029 03/07/2024, 03/07/2024 DTaP,Tdap,and Td Vaccines (3 - Td or Tdap) 01/07/2035 01/07/2025, 01/21/2017 Hepatitis C Screening Completed 05/01/2019 Colorectal Cancer Screening: Colonoscopy Discontinued 08/12/2022 Pneumococcal Vaccine: 50+ Years Completed 09/26/2024, 05/29/2019, 06/24/2017 RSV Immunization Adult Patients Completed 09/26/2024 COVID-19 Vaccine Completed 04/10/2025, 02/2023, 10/28/2021 Influenza Vaccine Completed 04/10/2025, , 04/04/2023, Additional history exists HIB Vaccines Aged Out No longer eligi [...] Name Priority Date/Time Associated Diagnosis Comments MG RAD RETURN VISIT (NO CHARGE) Routine 04/26/2025 8:11 AM EDT Other screening mammogram MG MAMMO DIGITAL SCREENING W GALILEO BILAT Routine 03/07/2025 10:44 AM EDT Encounter for screening mammogram for breast cancer ANNUAL BMP BLOOD TEST Routine 03/07/2024 LIPID PANEL Routine 03/07/2024 HPV Routine 01/17/2024 COLONOSCOPY Routine 08/12/2022 HEPATITIS C SCREENING Routine 05/01/2019 from Last 3 Months or Most Recently Relevant to Health Maintenance Results * MG Rad Return Visit (No Charge) (04/26/2025 8:11 AM EDT) Anatomical Region Laterality Modality N/A Mammography 04/26/2025 8:23 AM EDT Narrative 04/26/2025 8:29 AM EDT Bilateral MLO views, repeat examination. History possible abdominal quadrant in the axillary regions. 2-D C views and Tomosynthesis views of both breast and MLO projections were obtained after careful cleaning of the axillary regions. Previously questioned artifact from the quadrant of motion is no longer present. There are coarse calcifications which were present on prior studies. No new suspicious abnormalities were identified. CONCLUSIONS: No mammographic evidence for malignancy. Follow-up mammogram at the time of the next annual screening date. BIRADS 2, benign findings. -------- FINAL REPORT -------- Dictated By: Kellen Sweeney Dictated Date: 04/26/2025 08:23 ET Assigned Physician: Kellen Sweeney Reviewed and Electronically Signed By: Kellen Sweeney Signed Date: 04/26/2025 08:29 ET Workstation ID: [id number] Transcribed By: Self Edit Transcribed Date: 04/26/2025 08:23 ET Aquilino Del Rio MD [facility] [place] BI PROCEDURES Final Result * (ABNORMAL) MG Mammo Digital Screening w [...] Additional bilateral breast imaging recommended. Mammo Location: [facility], [address] [place] [address], [address], . -------- FINAL REPORT -------- Dictated By: Kellen Sweeney Dictated Date: 03/08/2025 09:30 ET Assigned Physician: Kellen Sweeney Reviewed and Electronically Signed By: Kellen Sweeney Signed Date: 03/08/2025 09:42 ET Workstation ID: [id number] Transcribed By: Self Edit Transcribed Date: 03/08/2025 [...] Additional bilateral breast imaging recommended. Mammo Location: [facility], [address] [place] [address], [address], . -------- FINAL REPORT -------- Dictated By: Kellen Sweeney Dictated Date: 03/08/2025 09:30 ET Assigned Physician: Kellen Sweeney Reviewed and Electronically Signed By: Kellen Sweeney Signed Date: 03/08/2025 09:42 ET Workstation ID: [id number] Transcribed By: Self Edit Transcribed Date: 03/08/2025 09:30 ET Result [facility] Aquilino Del Rio MD IMG BI PROCEDURES Final Result * Annual BMP Blood Test (03/07/2024) [facility] Annual BMP Blood Test abstracted Result [facility] Provider HEALTH MAINTENANCE Final Result * (ABNORMAL) Lipid panel (03/07/2024) [facility] LDL/HDL Ratio 3 0 - 4 Triglycerides 94 0 - 150 mg/dL Cholesterol 190 0 - 200 mg/dL HDL 60 >=40 mg/dL LDL Cholesterol 112(A) 0 - 100 mg/dL Blood Venous blood specimen / Unknown Result [facility] Provider LAB BLOOD ORDERABLES Karli l Result * Cervical Cancer Screening: HPV (01/17/2024) [facility] Cervical Cancer Screening: HPV positive, abstracted Comment:HIGH RISK HPV: POSIT SUHAIL , HPV 16: NEGATIVE HPV 18/45: NEGATIVE Result [facility] Final Result * Colonoscopy (08/12/2022) [facility] Colonoscopy no interpretation , abstracted Anatomical Region Laterality Modality Other Result [facility] Final Result * Hepatitis C Screening (05/01/2019) Hepatitis C Screening abstracted us Historical Provider HEALTH MAINTENANCE Final Result from Last 3 Months or Most Recently Relevant to Health Maintenance Insurance [facility] [employer] Care Teams Impregnator And Drier Helper Relationship Specialty Start Date End Date Aquilino Del Rio MD [address] [address] PCP - General Internal Medicine 04/28/19
--- OUTSIDE RECORDS SUMMARY | 2025-05-23 13:05 | XMS_ITS | Clinical Summary ---
Author Organization [facility] Address [address] [place] [address] Phone Care Team Providers Care Club Licensee Name Role Phone Pcp, Unknown Primary Care Provider Unavailabl e Social History Tobacco Use Types Packs/Day Years Used Date Smoking Tobacco: Never Assessed Education Answer Date Recorded Are you interested in more education? Not on alba e 11/07/2022 Are you concerned about learning? Not on file 11/07/2022 No 11/07/2022 No 11/07/2022 Digital Access Answer Date Recorded No 12/08/2022 No 12/08/2022 Reliable internet access at home? Not on file 12/08/2022 Device with a working camera? Not on file Comments Unknown Sex and Gender Information Value Date Recorded Sex Assigned at Not on file Legal Sex Female 12:02 PM EDT Gender Identity Not on file Sexual Orientation Not on file Plan of Treatment Not on file Medical Devices Not on file [facility] ALL[facility] ACO [facility] videoNEXTY ALLANCE [facility] Care Teams Club Licensee Relationship Specialty Start Date End Date Pcp, Unknown PCP - General 09/30/21 Additional Source Comments The information contained in this document represents components of the legal health record. It is not the complete legal health record.[facility]
== END 2025-05-23 11:59 | disposition home or self-care (01) ==
LOC: HO.HSM 10:48
PROVIDERS: PCP Internal Medicine; Visit Provider Psychiatry & Neurology Neurology
DX: G31.84 Mild cognitive impairment of uncertain or unknown etiology (principal); G56.00 Carpal tunnel syndrome, unspecified upper limb
CPT/HCPCS: 99214

== ENCOUNTER → 2025-05-23 10:48 | Outpatient (BNVA) | payer OTHER, SELFPAY | PROVIDERS: PCP Internal Medicine; Visit Provider Psychiatry & Neurology Neurology | DX: G31.84 Mild cognitive impairment of uncertain or unknown etiology (principal); G56.03 Carpal tunnel syndrome, bilateral upper limbs; R20.0 Anesthesia of skin; R20.2 Paresthesia of skin | CPT/HCPCS: 99212 ==